=== PATIENT | male | born 1960 | race Caucasian/White ===

== ENCOUNTER 2017-01-02 18:45 | Emergency (ER) | payer OTHER ==
[~2017-01-02] VITALS: Ht 180.3 cm; Wt 78.0 kg
[2017-01-02 18:52] VITALS: BP 119/76; PULSE 98; RESP 20; TEMP 97.6; O2SAT 95
[2017-01-02 19:12] LABS: BASOPHIL % 0.5 % (0.0-2.0); EOSINOPHIL % 0.7 % (0.0-4.0); HEMATOCRIT 47.2 % (39.0-51.0); HEMO FLAGS DIFF FINAL; LYMPH % 24.1 % (9.0-44.0); LYMPHOCYTE # 1.6 TH/MM3 (1.0-4.8); MEAN CELL VOLUME 92.2 FL (80.0-100.0); MEAN CORPUSCULAR HEMOGLOBIN 30.9 PG (27.0-34.0); MEAN CORPUSCULAR HGB CONC 33.6 % (32.0-36.0); NEUT % 61.7 % (16.0-70.0); PLATELET COUNT 194 TH/MM3 (150-450); RED BLOOD COUNT 5.12 MIL/MM3 (4.50-5.90); RED CELL DISTRIBUTION WIDTH 13.8 % (11.6-17.2); WHITE BLOOD COUNT 6.5 TH/MM3 (4.0-11.0)
[2017-01-02 19:42] LABS: POTASSIUM 4.1 MEQ/L (3.5-5.1)
--- NOTE | 2017-01-02 20:13 | PD ---
HPI Chief Complaint: Psychiatric Symptoms Time Seen by Provider: 20:09 Travel History International Travel<30 days: No Contact w/Intl Traveler<30days: No History of Present Illness HPI 56-year-old male presents to the emergency Department under Alvarez act by local police for suicidal ideation. According to the Alvarez act, the patient made suicidal statements to his and told the police that he didn't care what happened to him. The patient states all he wanted was $5 from his to by more beer. He states that she refused to give it to him. When I asked him if he made suicidal statements he states "I always do". The patient is begging for cigarettes or nicotine patch. He states that he'll shoot himself in the headache he does not get a nicotine patch. The patient's reports history of cataracts and uses eyedrops. He has no other chronic medical problems and takes no other prescribed medications. Patient states that he drinks whenever he has money to drink. He also smokes approximately one pack per day and smokes marijuana. He denies any other illegal drug use. Patient denies any medical complaints at this time. [facility] Social History Alcohol Use: Yes Tobacco Use: Yes Substance Use: Yes Allergies-Medications (Allergen,Severity, Reaction): Coded Allergies: No Known Allergies (Unverified , 01/02/17) Review of Systems Except as stated in HPI: all other systems reviewed are Neg Physical Exam Narrative GENERAL: Well-nourished, well-developed male patient, ambulatory. Afebrile. SKIN: Focused skin assessment warm/dry. HEAD: Normocephalic. Atraumatic. EYES: No scleral icterus. No injection or drainage. NECK: Supple, trachea midline. No JVD or lymphadenopathy. CARDIOVASCULAR: Regular rate and rhythm without murmurs, gallops, or rubs. RESPIRATORY: Breath sounds equal bilaterally. No accessory muscle use. Lungs sounds are clear to auscultation. GASTROINTESTINAL: Abdomen soft, non-tender, nondistended. MUSCULOSKELETAL: No cyanosis, or edema. PSYCHIATRIC: No delusional thought processes. No hallucinations. Data Data Last Documented VS Vital Signs Date Time Temp Pulse Resp B/P Pulse Ox O2 Delivery O2 Flow Rate FiO2 01/02/17 18:52 97.6 98 20 119/76 95 Orders Complete Blood Count With Diff (01/02/17 18:56) Basic Metabolic Panel (Bmp) (01/02/17 18:56) Alcohol (Ethanol) (01/02/17 18:56) Drug Screen, Random Urine (01/02/17 18:56) Nicotine 14 Mg Patch.24 Hr (Habitrol 14 (01/02/17 20:15) Labs Laboratory Tests Test 01/02/17 19:00 White Blood Count 6.5 TH/MM3 Red Blood Count 5.12 MIL/MM3 Hemoglobin 15.8 GM/DL Hematocrit 47.2 % Mean Corpuscular Volume 92.2 FL Mean Corpuscular Hemoglobin 30.9 PG Mean Corpuscular Hemoglobin 33.6 % Concent Red Cell Distribution Width 13.8 % Platelet Count 194 TH/MM3 Mean Platelet Volume 7.2 FL Neutrophils (%) (Auto) 61.7 % Lymphocytes (%) (Auto) 24.1 % Monocytes (%) (Auto) 13.0 % Eosinophils (%) (Auto) 0.7 % Basophils (%) (Auto) 0.5 % Neutrophils # (Auto) 4.0 TH/MM3 Lymphocytes # (Auto) 1.6 TH/MM3 Monocytes # (Auto) 0.8 TH/MM3 Eosinophils # (Auto) 0.0 TH/MM3 Basophils # (Auto) 0.0 TH/MM3 CBC Comment DIFF FINAL Differential Comment Sodium Level 141 MEQ/L Potassium Level 4.1 MEQ/L Chloride Level 109 MEQ/L Carbon Dioxide Level 19.0 MEQ/L Anion Gap 13 MEQ/L Blood Urea Nitrogen 12 MG/DL Creatinine 0.94 MG/DL Estimat Glomerular Filtration 83 ML/MIN Rate Random Glucose 72 MG/DL Calcium Level 8.5 MG/DL Ethyl Alcohol Level 291 MG/DL [facility] Medical Decision Making Medical Screen Exam Complete: Yes Emergency Medical Condition: Yes Medical Record Reviewed: Yes Differential Diagnosis Depression versus anxiety versus bipolar disorder versus substance abuse versus alcohol intoxication Narrative Course 56-year-old male presents to the emergency Department under Alvarez act by local police. CBC is unremarkable. BMP shows no acute abnormality. Alcohol level is 291. Urine drug screen is pending. Patient is medically cleared for psychiatric screening and disposition. Mental health screening discussed with the patient. Psychiatric screen ordered. Diagnosis Primary Impression: Depression Qualified Code: F32.9 - Depression, unspecified depression type Additional Impression: Alcohol intoxication Qualified Code: F10.120 - Alcohol intoxication, uncomplicated Additional Instructions: Patient is medically clear for psychiatric screening and disposition. Condition: Stable RejiSarah manzano DANIAL Jan 02, 2017 20:13
[2017-01-02] MEDS ORDERED: NICOTINE 14 MG/24 HR PATCH T-DERMAL ONE (20:15)
--- NOTE | 2017-01-03 08:28 | MB ---
cc: [facility] DATE OF CONSULTATION: 01/03/2017 REQUESTING PHYSICIAN: Emergency department REASON FOR CONSULTATION: Alvarez Act HISTORY OF PRESENT ILLNESS: Mr. Keith is a 56 year-old male with no known past psychiatric history who presents under a Alvarez Act from [facility] Department alleging that the patient's called law enforcement and said that the patient was threatening to kill himself. While the officer was speaking with the patient, the patient allegedly stated that he does not care what happens. Reviewing the electronic medical record, I see no prior psychiatric contact within our system. The patient seen and examined. Chart reviewed. I note that while the patient was speaking with the ED provider last night he told the ED provider that he would shoot himself, however, the patient was significantly intoxicated with an alcohol level of 291. On my examination this morning the patient is clinically sober. He denies any suicidal or homicidal ideation. He tends to minimize his drinking. He does admit that he is going through marital issues and he suspects that this was the pam of the Alvarez Act. When I asked if he made suicidal threats he says he was sure that he did but, "I was just trying to push her buttons." The patient does admit to feeling somewhat dysphoric because "I worked hard all my life and other people are lazy." However, the patient is future oriented and has no anhedonia. He does admit to some sleep disturbance but this may be due to shift work. No hopelessness or worthlessness. No hypomanic or manic symptoms. Denies AVH. Denies no evident delusions. Denies homicidal ideation. The remainder of the psychiatric ROS is negative. The patient is requesting discharge from the psychiatric emergency room. With the patient's permission, I did endeavor to obtain collateral from his , Lucy, at the number listed in the Alvarez Act and in the EMR. Unfortunately the number rang to a business and I was unable to reach Lucy there. PAST PSYCHIATRIC HISTORY The patient denies any history of psychiatric diagnosis. He has seen a therapist in the past for marital issues. He is currently not under the care of a psychiatrist. He was admitted five or six years ago at some hospital in [place]. He is unsure, reportedly for depression. He denies any history of suicide attempt. FAMILY HISTORY: The patient reports a family history of depression and suicide in his paternal grandfather. No other family psychiatric history. CHEMICAL DEPENDENCY HISTORY: The patient admits to drinking but tends to minimize the quantity. He denies any other substance use. SOCIAL HISTORY The patient reports that he is and remarried. He has known his current since adolescence. He has a total of 4 children and 3 stepchildren. He is high school educated and some college. He works at [employer] in the [employer] department. Denies any history. Denies any access to guns or firearms. Denies any holiness or spiritual beliefs. Denies any history of trauma. PAST MEDICAL HISTORY Patient denies. PHYSICAL EXAMINATION VITAL SIGNS: Temperature 97.6, pulse 98, respiratory rate 20, blood pressure 119/76. Pulse oximetry 95. Physical examination was completed by the ED provider. On my examination today, the patient appears to be in no acute physical distress. No motoric abnormalities noted. No signs of withdrawal noted. LABORATORY Reviewed. CBC unremarkable. BMP unremarkable except for mildly decreased GFR. Alcohol level 291. Toxicology not obtained. MENTAL STATUS EXAMINATION: The patient is in hospital gown. He is well groomed. He is awake, alert, oriented x3. No evidence of delirium. No motoric abnormalities noted. No signs of withdrawal noted. Speech is within normal limits for rate, tone and volume. Language and fund of knowledge seem average. Mood is reportedly fair and affect is blunted. Thought process linear. No loosening of associations. No evident delusions. Denies audiovisual hallucinations. Denies suicidal or homicidal ideation. Insight and judgment are fair. ASSESSMENT/PLAN 1. Alcohol abuse with intoxication, F10.120, intoxication resolved. 2. Rule out some underlying depressive diathesis. This is a 56 year-old male with psychiatric history as detailed above, who presents under a Alvarez Act. The Alvarez Act alleges suicidal threats and the patient apparently made some ongoing suicidal threats to the ED provider last night while he was highly intoxicated. Now that he is clinically sober, the patient is recanting these. He seems to be doing fairly well and I cannot really detect any unstable mood, anxiety or psychotic disorder in this patient at this time. However, in the absence of reassuring collateral, I am not comfortable lifting the Alvarez Act at this time as I fear there may be some depressive diathesis that could be missed in a screening eval. I have asked the nurse from the [facility] to come out to endeavor to obtain further collateral from the patient. If collateral remains wanting, we may be required to admit the patient for psychiatric observation at [facility]. The patient to remain on Alvarez Act with plan for transfer to [facility] until suicide risk can be further stratified by obtaining collateral. Thank you very much for this consultation. Lorenzo Ramirez DC/PEÑA /7:49 AM /7:57 AM VITO
[2017-01-03 12:00] VITALS: BP 110/72; PULSE 78; RESP 16; TEMP 98.2; O2SAT 100
== END 2017-01-03 15:36 ==
LOC: NEPE 18:45 → NEPA 01-03 15:36
DX: F32.9 Major depressive disorder, single episode, unspecified (principal); F10.120 Alcohol abuse with intoxication, uncomplicated; Z72.0 Tobacco use; Z86.69 Personal history of other diseases of the nervous system and sense organs
CPT/HCPCS: 80048; 80307; 85025; 99285